=== PATIENT | male | born 1970 | race Caucasian/White ===

== ENCOUNTER 2017-01-05 23:12 | Emergency (ER) | payer BC ==
[~2017-01-05] VITALS: Ht 182.9 cm; Wt 101.0 kg
[2017-01-05 23:18] VITALS: BP 157/109; PULSE 82; RESP 18; TEMP 98.5; O2SAT 98
--- NOTE | 2017-01-05 23:58 | PD ---
HPI Chief Complaint: Pain: Acute or Chronic Time Seen by Provider: 23:55 Travel History International Travel<30 days: No Contact w/Intl Traveler<30days: No Traveled to known affect area: No History of Present Illness HPI The patient is a 46-year-old male that complains of left knee pain for one week. He denies any injury. He denies any unusual or excessive use of the knee in the past week. He denies any fever. He claims a pain of 8/10 with the pain being sharp and stabbing and "inside the joint". He says he has some slight left ankle pain but this is very minimal. [facility] Past Medical History Diminished Hearing: No Hypertension: Yes Immunizations Current: Yes Tetanus Vaccination: > 5 Years Influenza Vaccination: No Social History Alcohol Use: Yes (WEEKENDS) Tobacco Use: Yes (1PPD) Substance Use: No Allergies-Medications (Allergen,Severity, Reaction): Coded Allergies: No Known Allergies (Unverified , 01/05/17) Review of Systems Except as stated in HPI: all other systems reviewed are Neg Physical Exam Narrative GENERAL: The patient is alert, oriented 3 and slight apparent distress with his left knee pain. His vital signs show blood pressure 157/109 but are otherwise normal. SKIN: Focused skin assessment warm/dry. HEAD: Atraumatic. Normocephalic. EYES: Pupils equal and round. No scleral icterus. No injection or drainage. ENT: No nasal bleeding or discharge. Mucous membranes pink and moist. NECK: Trachea midline. No JVD. CARDIOVASCULAR: Regular rate and rhythm. No murmur appreciated. RESPIRATORY: No accessory muscle use. Clear to auscultation. Breath sounds equal bilaterally. GASTROINTESTINAL: Abdomen soft, non-tender, nondistended. Hepatic and splenic margins not palpable. MUSCULOSKELETAL: No obvious deformities. No clubbing. No cyanosis. No edema. Collaterals, drawer, Aleta all show intact testing. There is no erythema present. There is slight joint line tenderness present. The patient has pain on extension and flexion. NEUROLOGICAL: Awake and alert. No obvious cranial nerve deficits. Motor grossly within normal limits. Normal speech. PSYCHIATRIC: Appropriate mood and affect; insight and judgment normal. Data Data Last Documented VS Vital Signs Date Time Temp Pulse Resp B/P Pulse Ox O2 Delivery O2 Flow Rate FiO2 01/05/17 23:18 98.5 82 18 157/109 98 Orders Knee, Complete (4vws) (01/05/17 23:55) Ketorolac Inj (Toradol Inj) (01/06/17 00:15) [facility] Medical Decision Making Medical Screen Exam Complete: Yes Emergency Medical Condition: Yes Medical Record Reviewed: Yes Interpretation(s) The left knee shows no fractures, dislocations, lytic lesions or sclerotic lesions. The study is unremarkable. Differential Diagnosis Joint effusion, septic kneehighly unlikely, arthritis, osteochondral insufficiency fracture, arthrosis right knee Narrative Course The patient has not throat since of the right knee. I do not know the cause of this at this time, he denies any trauma or overuse. There is no evidence for arthritis, septic knee and the x-ray show no fracture. Diagnosis Primary Impression: Arthrosis of knee Additional Instructions: As we discussed, take the Motrin regularly, 1 capsule 3 times daily. This will give you high anti-inflammatory levels. The pain pill is mainly at night, you cannot work on it in the daytime. It is one or 2 before bed. We will be glad to write a work excuse but you state you are going to work anyway. Follow-up with your primary care physician or an orthopedic physician. Med/Other Pt SpecificInfo: Prescription(s) given Scripts Oxycodone-Acetaminophen (Percocet)5-325 mg Tab1-2 Tab PO Q4H PRN (PAIN) #30 TAB Ref 0 Prov:Alfredo Rednon MD 01/06/17 Ibuprofen 800 Mg Tyn597 Mg PO TID #44 TAB Ref 0 Prov:Alfredo Rendon MD 01/06/17 Disposition: 01 DISCHARGE HOME Condition: Stable Alfredo Rendon MD January 05, 2017 23:58
[2017-01-06] MEDS ORDERED: KETOROLAC TROMETHAMINE 60 MG/2 ML (IM) VIAL IM ONE (00:15)
[2017-01-06 00:20] VITALS: BP 180/99; PULSE 80; RESP 18; O2SAT 98
--- NOTE | 2017-01-06 00:27 | RADHPO ---
EXAM DATE/TIME: 01/06/2017 00:04 [facility] COMPARISON: No previous studies available for comparison. INDICATIONS : Left knee pain, no trauma. MEDICAL HISTORY : None. SURGICAL HISTORY : None. ENCOUNTER: Initial ACUITY: 1 week PAIN SCORE: 8/10 LOCATION: Left knee FINDINGS: No definite fractures, or dislocations are identified. No definite lytic or sclerotic lesion is seen . The joint spaces are well maintained. CONCLUSION: Unremarkable study. Babatunde Young MD on January 06, 2017 at 0:25 Board Certified Radiologist. This report was verified electronically.
[2017-01-06] MEDS ORDERED: PERC5TAB12 PO (01:14)
[2017-01-06] MEDS ORDERED: IBUP800T23 PO (01:14)
[2017-01-06 01:30] VITALS: BP 185/103
== END 2017-01-06 01:35 | disposition home or self-care (01) ==
LOC: PHED 23:12
DX: M17.12 Unilateral primary osteoarthritis, left knee (principal); I10 Essential (primary) hypertension; F17.200 Nicotine dependence, unspecified, uncomplicated
CPT/HCPCS: 73564; 96372; 99284; J1885